=== PATIENT | female | born 1990 ===

== ENCOUNTER → 2016-03-15 | Outpatient (CLI) | payer OTHER ==
--- NOTE | 2016-03-15 11:29 | DX ---
Cervical Spine, Five Views 10:34 a.m. Clinical History: 25-year-old female who fell skiing yesterday, and complains of increased pain when looking to the left. ICD-10 Diagnostic Code: S19.9XXA. Comparison Study: None. Findings: There is slight reversal of the normal cervical lordosis, suggestive of underlying muscle s pasm. The vertebral body heights and posterior alignments are otherwise unremarkable. The disk spaces are preserved. There is no facet malalignment. There is no neural foraminal stenosis, or acute fract ure identified. The predental space is normal. The prevertebral soft tissue thickness is normal. The cervical-thoracic alignment is maintained. The interspinous distances are appropriate. The odontoid v iew is slightly limited secondary to some head turning and dental osseous superimposition. Impression: 1. Secondary features suggestive of underlying muscle spasm. 2. Limited odontoid view. If there is further clinical concern regarding the patient's cervicalgia, CT or MR imaging is suggest ed.
--- NOTE | 2016-03-15 11:31 | DX ---
Left Wrist, Four Views 10:33 a.m. Clinical History: 25-year-old female who fell while skiing yesterday, and complaining of pain which h as been increasing with lateral flexion of the wrist. ICD-10 Diagnostic Code: M25.532. Comparison Study: None. Findings: Bone mineralization is preserved. On the ulnar deviation view, there is a faint radiolucenc y involving the distal radial pole of the navicular, and a hairline fracture in this location is not excluded. Alternatively, if the patient is not pinpoint-tender over this location, this could be rela marcelo to some osseous superimposition. The radiocarpal and intercarpal alignments are maintained. There is no ulnar variance. A bracelet projects over the radial and ulnar diaphyses. Impression: Equivocal hairline fracture (versus projectional anomaly) associated with the distal radi al portion of the navicular. Clinical correlation and follow-up are suggested.
== END ==
LOC: BMCIMAGING 10:37
PROVIDERS: ATTEND Family Medicine
DX: M62.838 Other muscle spasm (principal); S52.592A Other fractures of lower end of left radius, initial encounter for closed fracture; Y93.23 Activity, snow (alpine) (downhill) skiing, snowboarding, sledding, tobogganing and snow tubing; V00.321A Fall from snow-skis, initial encounter